=== PATIENT | male | born 1945 | race Caucasian/White ===

== ENCOUNTER 2021-04-10 00:56 | Day surgery (SDC) | payer MEDICARE, SELFPAY ==
[2021-04-01 13:42] VITALS: BMI 36.0
--- NOTE | 2021-04-09 12:46 | PM.HPGS ---
History of Present Illness History of Present Illness Consent: Risks, benefits, and alternatives have been discussed and questions answered. Patient agrees to proceed with procedure. Chief complaint: neoplasm screening Narrative: Rodney Mathur is a 75 year old male here for colon cancer screening. He has had several polyps removed about 5 years ago Review of Systems Review of Systems: All systems reviewed & are unremarkable except as noted in HPI and below PMFSH Past Medical History Medical History Hyperlipidemia Hypertension Surgical History Surgical History H/O heart artery stent S/P CABG x 3 Family History Family History Other Diabetes mellitus Family history of cardiovascular disease Hypertension Social History Social History Smoking packs per day: 1 Smoking cigarettes per day: 20.0 Years smoked: 30 Smoking pack-years: 30.00 Smoking status: Former smoker Smoking end date: 08/08/97 Alcohol intake: current Drinks per week: 5 Alcohol use details: wine Living arrangements: alone Spiritual care concerns: No Meds Home Medications and Allergies Home Medications Medication Instructions Recorded Confirmed Type allopurinol 300 mg PO DAILY 04/01/21 04/01/21 History amlodipine 10 mg PO DAILY 04/01/21 04/10/21 History atorvastatin 40 mg PO DAILY 04/01/21 04/01/21 History clopidogrel 75 mg PO DAILY 04/01/21 04/10/21 History glipizide 5 mg PO DAILY 04/01/21 04/01/21 History losartan 100 mg PO DAILY 04/01/21 04/10/21 History metformin 500 mg PO BIDWMEAL 04/01/21 04/01/21 History metoprolol tartrate 25 mg PO BID 04/01/21 04/10/21 History Allergies Allergy/AdvReac Type Severity Reaction Status Date / Time MEPERIDINE HCL Allergy Severe ANAPHYLACTIC Uncoded 04/10/21 08:46 REACTION Exam Resp: Auscultation: clear to auscultation bilaterally Cardio: Rate: regular rate Rhythm: regular rhythm GI: GI Palp: Yes Soft to palpation and No Tenderness to palpation present (GI) Assessment and Plan Assessment and plan (1) Colon cancer screening: Code(s): Z12.11 - Encounter for screening for malignant neoplasm of colon Status: Acute Assessment and Plan: Colonoscopy with possible biopsy or polypectomy or cautery or injection of substances.
[2021-04-10 08:48] VITALS: BP 140/77; PULSE 69; RESP 18; TEMP 36.2; O2SAT 95; BMI 35.4
[2021-04-10] MEDS: LACTATED RINGERS 1,000 ML 150 ML IV CONT (09:06)
[2021-04-10 09:07] LABS: Glucose Point of Care 156 mg/dl (65-105)
--- NOTE | 2021-04-10 09:17 | WPDANESEPPF ---
Anes - Initial Pre Proc Eval Procedure: Operation Date: 04/10/21 09:30 Proposed Procedures p Screening Colonoscopy - Niles Joy MD Date/Time: 04/10/21 09:17 Surgeon: Niles Joy MD Pre Op Diagnosis: neoplasm screening Patient Data Age: 75 Gender: M Height: 1.8 m Weight: 115.1 kg Last Vital Signs Temp 97.1 F L 04/10/21 08:48 Pulse 69 04/10/21 08:48 Resp 18 04/10/21 08:48 BP 140/77 04/10/21 08:48 Pulse Ox 95 04/10/21 08:48 Allergies Allergy/AdvReac Type Severity Reaction Status Date / Time MEPERIDINE HCL Allergy Severe ANAPHYLACTIC Uncoded 04/10/21 08:46 REACTION Home Medications Medication Instructions Recorded Confirmed Type allopurinol 300 mg PO DAILY 04/01/21 04/01/21 History amlodipine 10 mg PO DAILY 04/01/21 04/10/21 History atorvastatin 40 mg PO DAILY 04/01/21 04/01/21 History clopidogrel 75 mg PO DAILY 04/01/21 04/10/21 History glipizide 5 mg PO DAILY 04/01/21 04/01/21 History losartan 100 mg PO DAILY 04/01/21 04/10/21 History metformin 500 mg PO BIDWMEAL 04/01/21 04/01/21 History metoprolol tartrate 25 mg PO BID 04/01/21 04/10/21 History Laboratory Tests 04/10/21 09:03 POC Capillary Glucose 156 mg/dl H mg/dl (65-105) Patient hx anesthesia problems: none Family hx anesthesia problems: none PMFSH Past Medical History Medical History Hyperlipidemia Hypertension Surgical History Surgical History (Updated 04/10/21 @ 09:17 by Pancho Lowe MD) H/O heart artery stent Family History Family History Other Diabetes mellitus Family history of cardiovascular disease Hypertension Social History Social History Smoking packs per day: 1 Smoking cigarettes per day: 20.0 Years smoked: 30 Smoking pack-years: 30.00 Smoking status: Former smoker Smoking end date: 08/08/97 Alcohol intake: current Drinks per week: 5 Alcohol use details: wine Living arrangements: alone Spiritual care concerns: No Anes - Eval Final PreProcedure Day of Procedure 04/10/21 09:17 Patient weight: obese Heart: regular rate and rhythm Lungs: clear to auscultation Airway: Mallampati scale class III Neurological: alert and oriented Last oral intake: >/= 8 hours ASA classification: III Emergent: no Anesthetic plan: proceed Anesthesia type and monitoring: general GIVS and standard monitoring Informed Consent: The patient's anesthetic plan and its attendant risks and benefits were discussed with the patient/family/POA. Questions were solicited and answers provided to the satisfaction of the patient/family/POA.
[2021-04-10 10:09] VITALS: BP 121/71; PULSE 66; RESP 18; O2SAT 98
[2021-04-10 10:19] VITALS: BP 133/79; PULSE 64; RESP 18; O2SAT 99
[2021-04-10 10:29] VITALS: BP 126/83; PULSE 62; RESP 18; O2SAT 99
== END 2021-04-10 10:42 | disposition home or self-care (01) ==
PROVIDERS: PCP Family Medicine; Visit Provider Internal Medicine Gastroenterology
PROC: 0DJD8ZZ Inspection of Lower Intestinal Tract, Via Natural or Artificial Opening Endoscopic (ICD-10-PCS; CPT 45378; principal; 2021-04-10 09:30)
DX: Z12.11 Encounter for screening for malignant neoplasm of colon (principal); D12.5 Benign neoplasm of sigmoid colon; D12.3 Benign neoplasm of transverse colon; D12.8 Benign neoplasm of rectum; I10 Essential (primary) hypertension; E78.5 Hyperlipidemia, unspecified; F17.200 Nicotine dependence, unspecified, uncomplicated; Z95.5 Presence of coronary angioplasty implant and graft; Z95.1 Presence of aortocoronary bypass graft
CPT/HCPCS: 45385; 45381; 82948; 88305; J2704; J7120

== ENCOUNTER 2022-08-08 10:51 | Emergency (ER) | payer MEDICARE, SELFPAY ==
--- NOTE | ~2022-08-08 | XR_ITS ---
EXAMINATION: XR chest 1V portable DATE: 08/08/2022 13:00 INDICATION: Cough. TECHNIQUE: A single frontal view of the chest was obtained. COMPARISON: Chest 2 views 05/09/2018, CT abdomen and pelvis 03/23/2018 FINDINGS: There are airspace opacities in the lower lung zones. No pleural effusion or pneumothorax. The heart size is normal. Calcified hilar and mediastinal lymph nodes are consistent with old granulo matous disease. There are changes of anterior fusion procedure in cervical spine. IMPRESSION: 1. Airspace opacities in the lower lung zones, consistent with atelectasis versus pneumonia. Reviewed, dictated and finalized at location A. HOUSE FOREMAN IMPRESSION: 1. Airspace opacities in the lower lung zones, consistent with atelectasis vers us pneumonia.
[2022-08-08 11:20] VITALS: BP 135/62; PULSE 75; RESP 20; TEMP 36.2; O2SAT 97
[2022-08-08 12:00] VITALS: O2SAT 97
[2022-08-08 12:20] LABS: Influenza A QL RT-PCR Negative (Negative); Influenza B QL RT-PCR Negative (Negative); RSV RNA, RT-PCR Negative (Negative); SARS-CoV-2 RNA PCR Positive
--- NOTE | 2022-08-08 13:16 | ED.GENADULT ---
HPI - General Adult General Chief complaint: Upper Respiratory Infection Stated complaint: cough, chills, without fever x 4 days Time Seen by Provider: 08/08/22 12:16 History of Present Illness HPI narrative: Patient is a 76-year-old male who presents to the ER with concerns for COVID-19. He reports his roommate is currently positive for COVID. On 08/05/2022 patient began having cough. Then developed into fevers and chills as well as fatigue. He has been immunized against COVID-19. No chest pain or chest pressure. He has not taken a home test. Related Data Home Medications Medication Instructions Recorded Confirmed allopurinol 300 mg tablet 300 mg PO DAILY 04/01/21 04/01/21 amlodipine 10 mg tablet 10 mg PO DAILY 04/01/21 04/10/21 atorvastatin 40 mg tablet 40 mg PO DAILY 04/01/21 04/01/21 clopidogrel 75 mg tablet 75 mg PO DAILY 04/01/21 04/10/21 glipizide 5 mg tablet 5 mg PO DAILY 04/01/21 04/01/21 losartan 100 mg tablet 100 mg PO DAILY 04/01/21 04/10/21 metformin 500 mg tablet,extended 500 mg PO BIDWMEAL 04/01/21 04/01/21 release 24 hr metoprolol tartrate 25 mg tablet 25 mg PO BID 04/01/21 04/10/21 Allergies Allergy/AdvReac Type Severity Reaction Status Date / Time MEPERIDINE HCL Allergy Severe ANAPHYLACTIC Uncoded 08/08/22 12:06 REACTION Review of Systems Constitutional: Constitutional: Reports chills, Reports fatigue and Reports fever(s) ENT: Reports nasal congestion and Reports sore throat Cardiovascular: Cardiovascular: Denies chest pain, Denies rapid heart rate and Denies radiating jaw, neck or arm pain Respiratory: Respiratory: Denies chest congestion, Reports cough and Denies dyspnea Gastrointestinal: Gastrointestinal: Reports no additional gastrointestinal complaints [facility] Past Medical History Medical History (Updated 08/08/22 @ 13:20 by Fermin Alba MD) History of prostate cancer Hyperlipidemia Hypertension Recurrent incisional hernia Type 2 diabetes mellitus Surgical History Surgical History (Updated 04/10/21 @ 09:17 by Pancho Lowe MD) H/O heart artery stent Family History Family History Other Diabetes mellitus Family history of cardiovascular disease Hypertension Social History Social History Smoking packs per day: 1 Smoking cigarettes per day: 20.0 Years smoked: 30 Smoking pack-years: 30.00 Smoking status: Former smoker Smoking end date: 08/08/97 Alcohol intake: current Drinks per week: 5 Alcohol use details: wine Spiritual care concerns: No Exam Narrative: GENERAL: Well-appearing, well-nourished, and in no acute distress. HEAD: Normocephalic, atraumatic. CHEST: Clear to auscultation. No respiratory distress. HEART: Regular rate and rhythm. Normal peripheral pulses. EXTREMITIES: Normal range of motion. No edema. SKIN: Warm, dry, no rash. NEURO: Alert and oriented x3. PSYCH: Normal mood and affect. Course Course Emergency Course: Patient resting comfortably. Imaging showed it is atelectasis versus pneumonia, favor pneumonia as patient is not having productive cough. Will provide albuterol for home and will also start molnupiravir as it does not interact with Plavix that he takes. He does have several comorbidities that are of concern including his diabetes, his age and his hypertension. Patient considered a suitable candidate for outpatient treatment. Vital Signs Vital signs: Vital Signs Temperature 97.1 F L 08/08/22 11:20 Pulse Rate 75 08/08/22 11:20 Respiratory Rate 20 08/08/22 11:20 Blood Pressure 135/62 08/08/22 11:20 Pulse Oximetry 97 08/08/22 11:20 Oxygen Delivery Room Air 08/08/22 11:20 Temperature 97.1 F L 08/08/22 11:20 Pulse Rate 75 08/08/22 11:20 Respiratory Rate 20 08/08/22 11:20 Blood Pressure 135/62 08/08/22 11:20 Pulse Oximetry 97 08/08/22 12:00 Oxygen Deliv
== END 2022-08-08 13:35 | disposition home or self-care (01) ==
PROVIDERS: Nurse Practitioner Family; Emergency Provider Emergency Medicine; PCP Family Medicine
DX: U07.1 COVID-19 (principal); E78.5 Hyperlipidemia, unspecified; E11.9 Type 2 diabetes mellitus without complications; I10 Essential (primary) hypertension; Z85.46 Personal history of malignant neoplasm of prostate; Z95.5 Presence of coronary angioplasty implant and graft; Z79.84 Long term (current) use of oral hypoglycemic drugs; Z87.891 Personal history of nicotine dependence; R91.8 Other nonspecific abnormal finding of lung field
CPT/HCPCS: 71045; 87637; 99283

== ENCOUNTER 2024-09-21 00:12 | Day surgery (SDC) | payer MEDICARE, SELFPAY ==
[2024-09-04 14:41] VITALS: BMI 32.5
--- NOTE | 2024-09-18 10:09 | PC.NURSE ---
Spoke with _patient_ regarding medication Plavix. Patient verbalizes understanding that the last dose is to be taken on 09/16/2024 and the Endoscopist will instruct them when to restart after the procedure.
--- OUTSIDE RECORDS SUMMARY | 2024-09-21 00:21 | XMS_ITS ---
Author Organization [facility] [address] 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 Encourage annual flu vaccine. Wear sunscreen/protective clothing when outdoors. 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 BP well controlled. LDL=39 Denies any chest pain, sob or fatigue. Reports 2 episodes of dizziness last month, occurred while carrying in groceries. Ate small snack for concerns of hypoglycemia and did not note improvement. BP during dizzy episodes variable, once elevated and once lower. Admits to not drinking enough water. Episodes resolved after sitting quietly for about 10 minutes. Encouraged close continued monitoring and increase PO water intake. EKG completed today showing bradycardia HR 50. Discussed with cardiology, will decrease metoprolol from 25 mg bid to 12.5 mg bid. Scheduled for follow up with cardiology next month. Assessment & Plan (07/19/2023 9:20 AM PARK AIDE): Continue secondary prevention with statin and clopidogrel. Denies any chest pain/pressure or reduced exercise tolerance. Assessment & Plan (01/14/2023 8:57 AM CDT): Managed by cardiology, continue secondary prevention. 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 No blood in stools. Assessment & Plan (09/22/2021 9:11 AM PARK AIDE): Holding clopidogrel since 09/19/21. Labs ordered for upcoming procedure with Dr. Dumont on 09/25/21. Obesity due to excess calories with serious ildefonso rbidity 06/04/2021 Assessment & Plan (07/19/2023 9:19 AM PARK AIDE): Patient has maintained weight loss, encouraged continued exercise and diet modifications. Assessment & Plan (07/16/2022 9:07 AM PARK AIDE): Congratulated on recent weight loss and increased exercise, will continue to monitor. Assessment & Plan (09/22/2021 9:15 AM PARK AIDE): Discussed healthy diet and importance of regular physical activity. Hopeful for increased physical activity following procedure on Tuesday. Assessment & Plan (06/04/2021 2:02 PM CDT): Reviewed need for weight loss to improve back pain. Recommended increased activity and monitor of portion size and caloric intake. 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 Dumont. Discussed need for weight loss and core strengthening exercises. Given short term muscle relaxer today, reviewed medication scheduling and side effects. Assessment & Plan (09/22/2021 9:10 AM PARK AIDE): Scheduled L4 Vertebral Augmentation with Dr. Dumont on 09/25/21. Has held plavix since Tuesday09/19/21. Per chart review, ordered labs today for procedure. Assessment & Plan (06/04/2021 2:06 PM CDT): Will get imaging. No s/s of cauda equina. No b/b dysfunction. Will trial short course of steroid and ms relaxer. Plan for PT following imaging, patient agreeable. Reviewed gently stretching exercises. Patient to stay active, avoid strain or heavy lifting. Encouraged weight loss. Reviewed red flags and follow up. 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 Monofilament exam completed, no loss of protective senses normal exam today. Blood pressure is well controlled. LDL is at goal. No change in current medication regimen. Assessment & Plan (07/19/2023 9:17 AM PARK AIDE): Stable. Continue checking feet daily. Current on eye exam. No change in current medication regimen. Reviewed labs today with patient Lab Results Component Value Date HGBA1C 6.3 (H) 07/13/2023 HGBA1C 6.4 (H) 01/14/2023 HGBA1C 6.9 (H) 07/16/2022 Assessment & Plan (01/14/2023 8:42 AM CDT): Encouraged patient to check blood glucose once daily and as needed if not feeling well. Will hold glipizide for now and check labs. Patient weight is down 36 lbs, congratulated on weight loss efforts and healthy lifestyle changes. Monofilament exam today with loss of protective senses, encouraged patient to check feet regularly. Current on eye exam. Continue metformin 500 mg twice daily. Assessment & Plan (07/16/2022 8:45 AM PARK AIDE): Patient taking metformin 500 mg twice daily and taking glipizide 5 mg once daily. Will check labs today and make changes as needed. Patient is down 16 lbs, congratulated on weight loss. Assessment & Plan (01/14/2022 8:35 AM CDT): Continues metformin and glipizide. Is current on eye exam. Discussed need to monitor carb/sugar intake. Encouraged to check BG at home. Will repeat a1c in 3 months, aware of goal <7%, encouraged to monitor bs at home. Lab Results Component Value Date HGBA1C 6.7 01/14/2022 HGBA1C 7.4 (H) 09/21/2021 HGBA1C 6.8 (H) 03/23/2021 Assessment & Plan (09/22/2021 9:04 AM PARK AIDE): Lab Results Component Value Date HGBA1C 7.4 (H) 09/21/2021 HGBA1C 6.8 (H) 03/23/2021 HGBA1C 6.9 (H) 09/12/2020 Continues metformin and glipizide. Is current on eye exam. Discussed need to monitor carb/sugar intake. Foot exam completed today. Will repeat a1c in 3 months, aware of goal <7%, encouraged to monitor bs at home. Hyperlipidemia associated with type 2 diabetes amelie husain 03/10/2020 Assessment & Plan (01/24/2024 10:36 AM CDT): Atorvastatin 40 mg daily Assessment & Plan (07/19/2023 9:18 AM PARK AIDE): LDL at goal, patient is compliant with atorvastatin 40 mg daily denies any medication side effects. Assessment & Plan (07/16/2022 9:12 AM PARK AIDE): Patient is taking atorvastatin 40 mg daily, denies any medication side effects.2/14/22 TC 101 TRG 233 HDL 31 LDL 23 Will repeat labs today make any additional changes as needed. Reviewed diet and exercise recommendations. Assessment & Plan (09/22/2021 8:44 AM PARK AIDE): 09/21/21 TC 101 TRG 233 HDL 31 LDL 23 Continues atorvastatin 40 mg daily. Chest pain due to myocardial ischemia 05/03/2019 Overview (05/03/2019): Added automatically from request for surgery [id number] Hypertension associated with diabetes Assessment & Plan (01/24/2024 10:42 AM CDT): BP well controlled. Doing well on losartan 100 mg daily. Assessment & Plan (07/19/2023 9:16 AM PARK AIDE): Blood pressure is well controlled on current medication regimen, continue losartan 100 mg daily, metoprolol 25 mg daily and amlodipine 10 mg daily. Assessment & Plan (01/14/2023 8:44 AM CDT): Stable; continue losartan 100 mg daily. Assessment & Plan (07/16/2022 8:50 AM PARK AIDE): Blood pressure well controlled on current medications. No changes in medications today. Patient has increased activity and is working on weight loss. Following with cardiology. Assessment & Plan (01/14/2022 8:36 AM CDT): BP well controlled. No changes in current regimen. Patient follows with cardiology. Assessment & Plan (09/22/2021 8:45 AM PARK AIDE): BP well controlled. No changes in current regimen. Assessment & Plan (06/04/2021 2:03 PM CDT): BP elevated today, likely secondary to back pain. Patient with ability to monitor BP at home. Reviewed BP goals and patient to call clinic if BP elevated. Reviewed red flags. Gout NSTEMI (non-ST elevated myocardial infarction) ( CMS/HCC) Acute coronary syndrome (CMS/HCC) LBBB (left bundle branch block) Current Oncology Plans No current plan information found. Past Plans No past plan information found. Radiation Treatments * No radiation treatments are documented for this patient in [facility]. Treatments may have been administered in another system. Lifetime Dose Tracking * Chemical Lifetime Dose Automatic Entry Manual Entr y Fluoro Time 6 minutes 6 minutes 0 minutes Air kerma at the reference point (Ka,r) 3,118.56 mGy 2 72.56 mGy 2,846 mGy Resolved Problems Problem Noted Date Diagnosed Date Resolved Date Chest pain 05/03/2019 01/24/2024 Hyperglycemia 05/03/2019 01/24/2024 Neck pain 01/24/2024
--- OUTSIDE RECORDS SUMMARY | 2024-09-21 00:21 | XMS_ITS | Referral Summary ---
Author [place] [facility] [place] [facility] Address [address] [place]to [place] [address] Care Team Providers Care Falafel Cart Cook Name Role Phone Saturnino Zepeda MD Primary Care Provider [phone] Rey Solis CAREER COORDINATOR Unavailable [phone] Krish Delacruz CAREER COORDINATOR Unavailable Annemarie Sinclair DNP Unavailable [phone] Encounters Date Type Department Care Team Description 09/17/2024 Telephone [facility] Cardiology [address] [place] [address] Ciaran Rodriguez MD from Last 3 Months Allergies Active Allergy Reactions Criticality Noted Date Comments Meperidine Anxiety Low 05/03/2019 Medications blood-glucose meter kitIndications :New onset type 2 diabetes mellitus (CMS/HCC) ([facility]) 1 each daily 1 each 09/17/19 20 Active clobetasoL (TEMOVATE) 0.05 % external solution 05/08/20 20 Active albuterol HFA (PROVENTIL HFA,VENTOLIN HFA,PROAIR HFA) 90 mcg/actuation inhalerIndicat ions:Type 2 diabetes mellitus with diabetic polyneuropathy , without long-term current use of insulin ([facility]) 2 puffs 08/08/19 23 Active metFORMIN XR (GLUCOPHAGE XR) 500 mg 24 hr tabletIndicati ons:Type 2 diabetes mellitus without complication, without long-term current use of insulin (CMS/HCC) ([facility]) TAKE 1 TABLET(500 MG) BY MOUTH TWICE DAILY WITH MEALS 180 tablet 3 10/07/19 24 Active amLODIPine (NORVASC) 10 mg tabletIndicati ons:Hypertensi on associated with diabetes (HCC) TAKE 1 TABLET(10 MG) BY MOUTH DAILY 90 tablet 3 01/12/20 24 Active atorvastatin (LIPITOR) 40 mg tabletIndicati ons:Hyperlipid [place] associated with type 2 diabetes mellitus (HCC) Take 1 tablet (40 mg total) by mouth nightly 90 tablet 3 01/24/20 24 Active losartan (COZAAR) 100 mg tabletIndicati ons:Hypertensi on associated with diabetes (HCC) Take 1 tablet (100 mg total) by mouth daily 30 tablet 11 01/24/20 24 Active glipiZIDE (GLUCOTROL) 5 mg tabletIndicati ons:type 2 diabetes mellitus Take 1 tablet (5 mg total) by mouth 2 (two) times a day before breakfast and lunch Active clopidogreL (PLAVIX) 75 mg tablet TAKE 1 TABLET(75 MG) BY MOUTH DAILY 90 tablet 07/09/20 24 Active allopurinoL (ZYLOPRIM) 300 mg tabletIndicati ons:Idiopathic chronic gout of multiple sites with tophus TAKE 1 TABLET(300 MG) BY MOUTH DAILY 90 tablet 3 09/03/19 25 Active allopurinoL (ZYLOPRIM) 300 mg tabletIndicati ons:Idiopathic chronic gout of multiple sites with tophus TAKE 1 TABLET(300 MG) BY MOUTH DAILY 90 tablet 3 09/06/19 24 025 Discontinued Active Problems Problem Noted Date Diagnosed Date Encounter for annual wellness exam in Medicare p atient 01/24/2024 Assessment & Plan (01/24/2024 10:36 AM CDT): Preventive exam; reviewed recommended preventive screenings and vaccinations. Encourage annual flu vaccine. Wear sunscreen/protective clothing when outdoors. COVID-19 07/19/2023 Coronary artery disease invo [place]ving [place] coronary artery of [place] heart without angina pectoris 01/14/2023 Assessment & [...] month. Assessment & Plan (07/19/2023 9:20 AM ROUTE DELIVERER): Continue secondary prevention with statin and clopidogrel. Denies any chest pain/pressure or reduced exercise tolerance. Assessment & Plan (01/14/2023 8:57 AM CDT): Managed by cardiology, continue secondary prevention. terminal manager (current) use of anticoagulants 2021 Assessment & Plan (01/24/2024 9:51 AM CDT): Continues clopidogrel 75 mg daily, no problems with bleeding or bruising. No blood in stools. Assessment & Plan (09/22/2021 9:11 AM ROUTE DELIVERER): Holding clopidogrel since 09/19/21. Labs ordered for upcoming procedure with Dr. Dumont on 09/25/21. Obesity due to excess calories with serious ildefonso rbidity 06/04/2021 Assessment & Plan (07/19/2023 9:19 AM ROUTE DELIVERER): Patient has maintained weight loss, encouraged continued exercise and diet modifications. Assessment & Plan (07/16/2022 9:07 AM ROUTE DELIVERER): Congratulated on recent weight loss and increased exercise, will continue to monitor. Assessment & Plan (09/22/2021 9:15 AM ROUTE DELIVERER): Discussed healthy diet and importance of regular [...] effects. Assessment & Plan (09/22/2021 9:10 AM ROUTE DELIVERER): Scheduled L4 Vertebral Augmentation with Dr. Dumont [...] regimen. Assessment & Plan (07/19/2023 9:17 AM ROUTE DELIVERER): Stable. Continue checking feet daily. Current on [...] daily. Assessment & Plan (07/16/2022 8:45 AM ROUTE DELIVERER): Patient taking metformin 500 mg twice daily [...] 03/23/2021 Assessment & Plan (09/22/2021 9:04 AM ROUTE DELIVERER): Lab Results Component Value Date HGBA1C 7.4 [...] daily Assessment & Plan (07/19/2023 9:18 AM ROUTE DELIVERER): LDL at goal, patient is compliant with atorvastatin 40 mg daily denies any medication side effects. Assessment & Plan (07/16/2022 9:12 AM ROUTE DELIVERER): Patient is taking atorvastatin 40 mg daily, denies any medication side effects.09/21/21 TC 101 TRG 233 HDL 31 LDL 23 Will repeat labs today make any additional changes as needed. Reviewed diet and exercise recommendations. Assessment & Plan (09/22/2021 8:44 AM ROUTE DELIVERER): 09/21/21 TC 101 TRG 233 HDL 31 LDL 23 Continues atorvastatin 40 mg daily. Chest pain due to myocardial ischemia 05/03/2019 Overview (05/03/2019): Added automatically from request for surgery [id number] Hypertension associated with diabetes Assessment & Plan (01/24/2024 10:42 AM CDT): BP well controlled. Doing well on losartan 100 mg daily. Assessment & Plan (07/19/2023 9:16 AM ROUTE DELIVERER): Blood pressure is well controlled on current medication regimen, continue losartan 100 mg daily, metoprolol 25 mg daily and amlodipine 10 mg daily. Assessment & Plan (01/14/2023 8:44 AM CDT): Stable; continue losartan 100 mg daily. Assessment & Plan (07/16/2022 8:50 AM ROUTE DELIVERER): Blood pressure well controlled on current medications. No changes in medications today. Patient has increased activity and is working on weight loss. Following with cardiology. Assessment & Plan (01/14/2022 8:36 AM CDT): BP well controlled. No changes in current regimen. Patient follows with cardiology. Assessment & Plan (09/22/2021 8:45 AM ROUTE DELIVERER): BP well controlled. No changes in current regimen. Assessment & Plan (06/04/2021 2:03 PM CDT): BP elevated today, likely secondary to back pain. Patient with ability to monitor BP at home. Reviewed BP goals and patient to call clinic if BP elevated. Reviewed red flags. Gout NSTEMI (non-ST elevated myocardial infarction) ( [facility]/HCC) Acute coronary syndrome ([facility]) LBBB (left bundle branch block) Resolved Problems Problem Noted Date Diagnosed Date Resolved Date Chest pain 05/03/2019 01/24/2024 Hyperglycemia 05/03/2019 01/24/2024 Neck pain 01/24/2024 Immunizations Name Administration Dates Next Due Influenza, Quadrivalent, Hig h Dose, Preservative Free, Intrr 06/01/2022,05/11/2021,06/10/2020 Influenza, Split 08/08/2017 Influenza, Trivalent, High D ose, Split, Preservative Free, Intramuscular 05/29/2019 Influenza, Trivalent, IM (MDV) 08/08/2017 Influenza, Unspecified 06/07/2023,2021,05/11/2021,05/13 Pfizer SARS-CoV-2 Monovalent Vaccination (12+ Yrs) PURPLE 05/11/2021,10/26/2020,10/05/2020 Pneumococcal Conjugate PCV 13 12/21/2019 Pneumococcal Conjugate, Unspecified 05/08/2018(D eferred: Patient Refused) Pneumococcal Polysaccharide PPV23 03/17/2021 Social History Tobacco Use Types Packs/Day Years Used Date Smoking Tobacco: Former Smokeless Tobacco: Never Tobacco Cessation:Counseling Given: Not Answered Alcohol Use Standard Drinks/Week Comments Yes 0 (1 standard drink = 0.6 oz pur e alcohol) occ. AUDIT-C Answer Date Recorded Q1: How often do you have a drink containing alc ohol? 2-4 times a month 08/25/2022 Q2: How many drinks containi ng alcohol do you have on a typical day when you are drinking? 3 or 4 08/25/2022 Q3: How often do you have si x or more drinks on one occasion? Less than monthly 08/25/2022 PHQ-2 Answer Date Recorded PHQ-2 Total Score (If total score is 3 or more points, staff should administer the PHQ-9) 0 01/24/2024 Personal Safety Answer Date Recorded Getting School Help Needed Not on file 07/19 Sex and Gender Information Value Date Recorded Sex Assigned at Not on file Legal Sex Male 9:45 AM ROUTE DELIVERER Gender Identity Not on file Sexual Orientation Not on file Last Filed Vital Signs Vital Sign Reading Time Taken Comments Blood Pressure 132/61 03/28/2024 1:31 PM CDT Pulse 59 02/15/2024 8:21 AM CDT Temperature 36.4 C (97.5 F) 01/24/2024 9:06 AM CDT Respiratory Rate 16 01/24/2024 9:06 AM CDT Oxygen Saturation 97% 02/15/2024 8:21 AM CDT Inhaled Oxygen Concentration - - Weight 102.1 kg (225 lb) 02/15/2024 8:21 AM CDT Height 177.8 cm (5' 10 ) 02/15/2024 8:21 AM CDT Body Mass Index 32.28 02/15/2024 8:21 AM CDT Plan of Treatment Not on file Medical Devices Implanted Type Area Fax Machine Repairer Device Identifier Shelf Expiration Date Model / Serial / Lot Daig Anisha [id number] Device Closure Angio-Seal Vip Bondek-Plus Polyglyd L70 Cm Od6 Fr Odsec.035 In Vascular - [id number] Implanted:Qty: 1 on 05/04/2019 by Ciaran Rodriguez MD at [facility] Collagen Daig Anisha/[employer] [id number] / / Daig Anisha/[employer] [id number] Angio-Seal Vip Bondek-Plus 8fr .038in 70cm Hemostatic Latex Free - [id number] Implanted:Qty: 1 on 05/04/2019 by Ciaran Rodriguez MD at [facility] Collagen Daig Anisha/[employer] [id number] / / [employer] Anisha [id number] Synergy 3.5mm 16mm 144cm Radiopaque 1 Access Port Inflation Lumen - [id number] Implanted:Qty: 1 on 05/04/2019 by Ciaran Rodriguez MD at [facility] Stent [employer] Anisha 11/29/2020 [id number] / / [employer] Anisha [id number] Synergy 3.5mm 20mm 144cm Radiopaque 1 Access Port Inflation Lumen - [id number] Implanted:Qty: 1 on 05/04/2019 by Ciaran Rodriguez MD at [facility] FIMBex [id number] 0 / / [employer] [id number] Vertaplex Hv Autoplex Without Needle Delivery System Kit Bone - [id number] Implanted:Qty: 1 on 09/25/2021 at [facility] 05/07/2022 [id number] / / [id number] Procedures Procedure Name Priority Date/Time Associated Diagnosis Comments DIABETIC EYE EXAM Routine 03/07/2024 9:0 2 AM CDT EGFR Routine 01/19/2024 8:07 AM CDT Hypertension associated with diabetes (HCC) Type 2 diabetes mellitus with diabetic polyneuropathy, without long-term current use of insulin (CMS/HCC) (HCC) Hyperlipidemia associated with type 2 diabetes mellitus (HCC) HEMOGLOBIN A1C Routine 01/19/2024 8:07 AM CDT Hypertension associated with diabetes (HCC) Type 2 diabetes mellitus with diabetic polyneuropathy, without long-term current use of insulin (CMS/HCC) (HCC) Hyperlipidemia associated with type 2 diabetes mellitus (HCC) LIPID PANEL Routine 01/19/2024 8:07 AM CDT Hypertension associated with diabetes (HCC) Type 2 diabetes mellitus with diabetic polyneuropathy, without long-term current use of insulin (CMS/HCC) (HCC) Hyperlipidemia associated with type 2 diabetes mellitus (HCC) ALBUMIN CREATININE RATIO, URINE Routine 01/19/2024 8:07 AM CDT Hypertension associated with diabetes (HCC) Type 2 diabetes mellitus with diabetic polyneuropathy, without long-term current use of insulin (CMS/HCC) (HCC) Hyperlipidemia associated with type 2 diabetes mellitus (HCC) US ABDOMINAL AORTIC ANEURYSM SCREENING Schedule Routine, Read Routine (OP Routine) 08/23/2022 11:41 AM ROUTE DELIVERER Encounter for abdominal aortic aneurysm (AAA) screening COLONOSCOPY Routine 04/10/2021 from Last 3 Months or Most Recently Relevant to Health Maintenance Results * Diabetic Eye Exam (03/07/2024 9:02 AM CDT) us Historical Provider HEALTH MAINTENANCE Final Result * eGFR (01/19/2024 8:07 AM CDT) eGFR 66 >=60 mL/min/1. 73 m2 Comment: Interpretive Data Reference Interval Normal >/= 90 mL/min/1.73m2 Mildly decreased* 60 - 89 mL/min/1.73m2 Mildly to moderately decreased 45 - 59 mL/min/1.73m2 Moderately to severely decreased 30 - 44 mL/min/1.73m2 Severely decreased 15 - 29 mL/min/1.73m2 Kidney Failure < 15 mL/min/1.73m2 *Relative to young adult level Estimated glomerular filtration rate is determined by the 2020 CKD-EPI equation recommended by the National Kidney Foundation (A Unifying Approach to GFR Estimation: Recommendations of the NKF-ASK Task Force on Reassessing the Inclusion of Race in Diagnosing Kidney Disease, JASN 2020). The CKD-EPI equation should not be used for patients with unstable renal function and has not been validated in children and those over 70. Current interpretive data was last reviewed 2021. Testing performed by: [address] [address] Blood 01/19/2024 8:07 AM CDT 01/19/2024 12:41 PM CDT Bernarda Storm NP LAB BLOOD ORDERABLES Final Result VERONICAALFONSO GHOSH ([place]) [address] [facility] [place] [address] * (ABNORMAL) Albumin Creatinine Ratio, Urine (01/19/2024 8:07 AM CDT) Albumin Ur 140.5 mg/L Comment: Interpretive Data No reference range established. Current interpretive data was last revised 2018. Testing performed by: [address] [address] Creatinine Ur 119.1 mg/dL PIYUSH GHOS[facility] ([place]) Comment: Interpretive Data No reference range established. Current interpretive data was last revised 2018. Testing performed by: [address] [place]., [address] Albumin Creatinine Ratio, Ur 118(H) 1 - 29 mg/g PIYUSH GHOS[facility] ([place]) Comment:Testing performed by : [address] [address] Urine 01/19/2024 8:07 AM CDT 01/19/2024 12:11 PM CDT Bernarda Storm [facility] [employer] LAB URINE ORDERABLES Final Result PIYUSH GHOS[facility] ([place]) [address] [facility] [place] [address] * (ABNORMAL) Hemoglobin A1c (01/19/2024 8:07 AM CDT) Hgb A1C 6.0(H) 4.0 - 5.6 % Comment:Testing performed by : [facility], [address] [place] [address]., [address] Estimated Average Glucose 126 mg/dL PIYUSH GHOSH ([place]) Comment: The ADA recommends reporting an estimated Average Glucose (eAG) with all Hemoglobin A1c results using the equation derived from a study of 507 normal and diabetic adults. Minority populations were underrepresented and children were not included. (Diabetes Care 31:6089-6405, 2008). The eAG is not equivalent to a fasting glucose. Testing performed by: [facility], [address] [place] [address]., [address] Blood 01/19/2024 8:07 AM CDT 01/19/2024 12:11 PM CDT Bernarda Storm [employer] LAB BLOOD ORDERABLES Final Result Performing Organization Address City/[facility]/ZIP Co de Phone Number PIYUSH GHOSH ([place]) [address] [facility] [place] [address] * (ABNORMAL) Lipid panel (01/19/2024 8:07 AM CDT) Cholesterol 113 30 - 199 mg/dL Comment: Interpretive Data Ages < or = 19 years Acceptable: <170 mg/dL Borderline high: 170-199 mg/dL High: >or= 200 mg/dL Ages > or = 20 years Desirable: <200 mg/dL Borderline high: 200-239 mg/dL High: >or= 240 mg/dL Literature References: 1. Expert Panel on Integrated Guidelines for Cardiovascular Health and Risk Reduction in Children and Adolescents. Pediatrics 2011;128:S213 2. NCEP Expert Panel. Circulation 2004;110:227 Current Interpretive Data was last revised on 2018. Testing performed by: [facility], [address] [place] [address]., [address] Triglycerides 176(H) <=149 mg/dL [facility] ([place]) Comment: Interpretive Data Ages < or = 9 years Acceptable: <75 mg/dL Borderline high: 75-99 mg/dL High: >or= 100 mg/dL Ages 10 to 20 years Acceptable: <90 mg/dL Borderline high: 90-129 mg/dL High: >or= 130 mg/dL Ages > or = 20 years Desirable: <150 mg/dL Borderline high: 150-199 mg/dL High: 200-499 mg/dL Very high: >or= 499 mg/dL Literature References: 1. Expert Panel on Integrated Guidelines for Cardiovascular Health and Risk Reduction in Children and Adolescents. Pediatrics 2011;128:S213 2. NCEP Expert Panel. Circulation 2004;110:227 Current Interpretive Data was last revised on 2018. Testing performed by: [facility], [address] [place] [address]., [address] HDL 39(L) >=40 mg/dL [facility] ([place]) Comment: Interpretive Data Ages < or = 19 years Acceptable: >45 mg/dL Borderline low: 40-45 mg/dL Low: <40 mg/dL Ages > or = 20 years Desirable: >or= 60 mg/dL Low: <40 mg/dL Literature References: 1. Expert Panel on Integrated Guidelines for Cardiovascular Health and Risk Reduction in Children and Adolescents. Pediatrics 2011;128:S213 2. NCEP Expert Panel. Circulation 2004;110:227 Current Interpretive Data was last revised on 2018. Testing performed by: [facility], [address] [place] [address]., [address] LDL, calculated 39 <=129 mg/dL [facility] ([place]) Comment: Interpretive Data Ages < or = 19 years Acceptable: <110 mg/dL Borderline high: 110-129 mg/dL High: >or= 130 mg/dL Ages > or = 20 years Optimal: <100 mg/dL Near optimal: 100-129 mg/dL Borderline high: 130-159 mg/dL High: >160 mg/dL Literature References: 1. Expert Panel on Integrated Guidelines for Cardiovascular Health and Risk Reduction in Children and Adolescents. Pediatrics 2011;128:S213 2. NCEP Expert Panel. Circulation 2004;110:227 Current Interpretive Data was last revised on 2018. Testing performed by: [address] [address] Non-HDL Cholesterol 74 mg/dL PIYUSH GHOS[facility] ([place]) Comment: Interpretive Data Ages < or = 19 years Acceptable: <120 mg/dL Borderline high: 120-144 mg/dL High: >145 mg/dL Ages > or = 20 years When triglycerides are >200 mg/dL, Non-HDL cholesterol is a secondary target of therapy with treatment goals that are 30 mg/dL greater than the LDL cholesterol target. Literature References: 1. Expert Panel on Integrated Guidelines for Cardiovascular Health and Risk Reduction in Children and Adolescents. Pediatrics 2011;128:S213 2. NCEP Expert Panel. Circulation 2004;110:227 Current Interpretive Data was last revised on 2018. Testing performed by: [facility], [address] [place] [address]., [address] Chol/HDL ratio 3 VENESSA GHOSH ([place]) Comment:Testing performed by : [address] [address] Blood 01/19/2024 8:07 AM CDT 01/19/2024 12:11 PM CDT Bernarda Storm NP LAB BLOOD ORDERABLES Final Result PIYUSH GHOS[facility] ([place]) [address] [facility] [place] [address] * US Abdominal Aortic Aneurysm Screening (08/23/2022 11:41 AM ROUTE DELIVERER) Anatomical Region Laterality Modality Abdomen Ultrasound 08/23/2022 12:5 3 PM ROUTE DELIVERER Narrative 08/23/2022 12:54 PM ROUTE DELIVERER EXAM DESCRIPTION: US ABDOMINAL AORTIC ANEURYSM SCREENING REASON FOR STUDY: AAA screening, smoking history (Age => 50y), 30 pack year history, quit smoking 24 years ago TECHNIQUE: Grayscale images acquired of the aorta and stored on PACS. Selected color Doppler and spectral images recorded. COMPARISON: None. FINDINGS: AORTIC CALIBER MAXIMAL PROXIMAL: 2.8 x 2.8 cm. MID: 2.2 x 2.1 cm. DISTAL: 1.7 x 1.8 cm. ILIAC DIAMETER RIGHT: 1.2 cm. LEFT: 1.2 cm. OTHER: Incidental demonstration of cholelithiasis. There is a hepatic steatosis. IMPRESSION: No abdominal aortic aneurysm. REFERENCE: Please see below follow up recommendations for abdominal aortic aneurysm surveillance per Society for Vascular Surgery Guidelines: < 2.6 cm No follow up necessary 2.62.9 cm Recommended ultrasound follow up every 5 years 3.0-3.4 cm Recommended ultrasound follow up every 3 years 3.5-3.9 cm Recommended ultrasound follow up every 12 months 4.0-4.9 cm Recommended ultrasound follow up every 12 months, vascular surgery consult 5.0-5.4 cm Recommended ultrasound follow up every 6 months, vascular surgery consult >= 5.5 cm Referral to vascular surgeon Based upon Society for Vascular Surgery Guidelines: J Vasc Surgery 2008 50: s2s49; updated Aug 2017 J Vasc Surgery 67:277 THIS IS AN ELECTRONICALLY VERIFIED FINAL REPORT 08/23/2022 12:54 PM - Electronically signed by Pool Lucia M.D. CH: Report ID: [id number] Reading Location: [id number] Procedure Note Pool Lucia Jr., MD - 08/23/2022 EXAM DESCRIPTION: US ABDOMINAL AORTIC ANEURYSM SCREENING REASON FOR STUDY: AAA screening, smoking history (Age => 51y), 30 packyear history, quit smoking 24 years ago TECHNIQUE: Grayscale images acquired of the aorta and stored on PACS.Selected color Doppler and spectral images recorded. COMPARISON: None. FINDINGS: AORTIC CALIBER MAXIMAL PROXIMAL: 2.8 x 2.8 cm. MID: 2.2 x 2.1 cm. DISTAL: 1.7 x 1.8 cm. ILIAC DIAMETER RIGHT: 1.2 cm. LEFT: 1.2 cm. OTHER: Incidental demonstration of cholelithiasis. There is a hepatic steatosis. IMPRESSION: No abdominal aortic aneurysm. REFERENCE: Please see below follow up recommendations for abdominal aortic aneurysm surveillance per Society for Vascular Surgery Guidelines: < 2.6 cm No follow up necessary 2.62.9 cm Recommended ultrasound follow up every 5 years 3.0-3.4 cm Recommended ultrasound follow up every 3 years 3.5-3.9 cm Recommended ultrasound follow up every 12 months 4.0-4.9 cm Recommended ultrasound follow up every 12 months, vascularsurgery consult 5.0-5.4 cm Recommended ultrasound follow up every 6 months, vascularsurgery consult >= 5.5 cm Referral to vascular surgeon Based upon Society for Vascular Surgery Guidelines: J Vasc Surgery 2009Oct 50: s2s49; updated Aug 2017 J Vasc Surgery 67:277 THIS IS AN ELECTRONICALLY VERIFIED FINAL REPORT 08/23/2022 12:54 PM - Electronically signed by Pool Lucia M.D. CH: YASMINE Report ID: [id number] Reading Location: [id number] Bernarda Storm NP IMG US PROCEDURES Final Res ult * Colonoscopy (04/10/2021) Anatomical Region Laterality Modality Other Historical Provider MD ENDOSCOPY PROCEDURES Judith l Result from Last 3 Months or Most Recently Relevant to Health Maintenance Insurance MEDICARE [employer] MEDICARE COMMERCIAL [employer]IC [employer] MEDICARE [employer] Advance Directives For more information, please contact: [phone] Documents on File Type Date Recorded Patient Line Installer Repairer Expl anation ADVANCE DIRECTIVE 09/18/2019 10:41 AM TRISTIN SANTA WILL ADVANCE DIRECTIVE 09/03/2019 Living Matthew l * Full Code (Latest Code Status on File) Date Activated Date Inactivated Comments 09/25/2021 1:56 PM 09/25/2021 7:17 PM * Full Code Date Activated Date Inactivated Comments 05/03/2019 6:48 AM 05/06/2019 7:18 PM Care Teams Falafel Cart Cook Relationship Specialty Start Date End Date Saturnino Zepeda MD [address] [place] [address] PCP - General Family Medicine 05/03/19 Rey Solis, CAREER COORDINATOR [address] [facility] [address] [place] [address] [facility] Outpatient Skin Installer 05/07/19 Krish Delacruz, CAREER COORDINATOR [address] [facility] [address] [place] [address] [facility] Outpatient Skin Installer 05/07/19 Annemarie Sinclair, [place] [address] [facility] [address] [place] [address] Nurse Practitioner Internal Medicine 05/07/19
--- OUTSIDE RECORDS SUMMARY | 2024-09-21 00:21 | XMS_ITS | Clinical Summary ---
Author Organization [facility] Address [address] [place] [address] Care Team Providers Care It Security Administrator Name Role Phone Saturnino Zepeda MD Primary Care Provider [phone] Rey Solis OFFICE RN Unavailable Krish Delacruz OFFICE RN Unavailable Annemarie Sinclair DNP Unavailable [phone] Allergies Active Allergy Reactions Criticality Noted Date Comments Meperidine Anxiety Low 05/03/2019 Medications blood-glucose meter kitIndications :New onset type 2 diabetes mellitus (CMS/HCC) ([facility]) 1 each daily 1 each 09/17/19 20 Active clobetasoL (TEMOVATE) 0.05 % external solution 05/08/20 20 Active albuterol HFA (PROVENTIL HFA,VENTOLIN HFA,PROAIR HFA) 90 mcg/actuation inhalerIndicat ions:Type 2 diabetes mellitus with diabetic polyneuropathy , without long-term current use of insulin ([facility]) 2 puffs 08/08/19 23 Active metFORMIN XR (GLUCOPHAGE XR) 500 mg 24 hr tabletIndicati ons:Type 2 diabetes mellitus without complication, without long-term current use of insulin ([facility]/HCC) ([facility]) TAKE 1 TABLET(500 MG) BY MOUTH TWICE DAILY WITH MEALS 180 tablet 3 10/07/19 24 Active amLODIPine (NORVASC) 10 mg tabletIndicati ons:Hypertensi on associated with diabetes ([facility]) TAKE 1 TABLET(10 MG) BY MOUTH DAILY [...] COVID-19 07/19/2023 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 Assessment & Plan (07/19/2023 9:20 AM MUFFLE OPERATOR): Continue secondary prevention with statin and clopidogrel. Denies any chest pain/pressure or reduced exercise tolerance. Assessment & Plan (01/14/2023 8:57 AM CDT): Managed by cardiology, continue secondary prevention. [facility] (current) use of anticoagulants 2021 Assessment & Plan (01/24/2024 9:51 AM CDT): Continues clopidogrel 75 mg daily, no problems with bleeding or bruising. No blood in stools. Assessment & Plan (09/22/2021 9:11 AM MUFFLE OPERATOR): Holding clopidogrel since 09/19/21. Labs ordered for upcoming procedure with Dr. Dumont on 09/25/21. Obesity due to excess calories with serious ildefonso rbidity 06/04/2021 Assessment & Plan (07/19/2023 9:19 AM MUFFLE OPERATOR): Patient has maintained weight loss, encouraged continued exercise and diet modifications. Assessment & Plan (07/16/2022 9:07 AM MUFFLE OPERATOR): Congratulated on recent weight loss and increased exercise, will continue to monitor. Assessment & Plan (09/22/2021 9:15 AM MUFFLE OPERATOR): Discussed healthy diet and importance of regular [...] effects. Assessment & Plan (09/22/2021 9:10 AM MUFFLE OPERATOR): Scheduled L4 Vertebral Augmentation with Dr. Dumont [...] regimen. Assessment & Plan (07/19/2023 9:17 AM MUFFLE OPERATOR): Stable. Continue checking feet daily. Current on [...] daily. Assessment & Plan (07/16/2022 8:45 AM MUFFLE OPERATOR): Patient taking metformin 500 mg twice daily [...] 03/23/2021 Assessment & Plan (09/22/2021 9:04 AM MUFFLE OPERATOR): Lab Results Component Value Date HGBA1C 7.4 [...] daily Assessment & Plan (07/19/2023 9:18 AM MUFFLE OPERATOR): LDL at goal, patient is compliant with atorvastatin 40 mg daily denies any medication side effects. Assessment & Plan (07/16/2022 9:12 AM MUFFLE OPERATOR): Patient is taking atorvastatin 40 mg daily, denies any medication side effects.09/21/21 TC 101 TRG 233 HDL 31 LDL 23 Will repeat labs today make any additional changes as needed. Reviewed diet and exercise recommendations. Assessment & Plan (09/22/2021 8:44 AM MUFFLE OPERATOR): 09/21/21 TC 101 TRG 233 HDL 31 LDL 23 Continues atorvastatin 40 mg daily. Chest pain due to myocardial ischemia 05/03/2019 Overview (05/03/2019): Added automatically from request for surgery [id number] Hypertension associated with diabetes Assessment & Plan (01/24/2024 10:42 AM CDT): BP well controlled. Doing well on losartan 100 mg daily. Assessment & Plan (07/19/2023 9:16 AM MUFFLE OPERATOR): Blood pressure is well controlled on current medication regimen, continue losartan 100 mg daily, metoprolol 25 mg daily and amlodipine 10 mg daily. Assessment & Plan (01/14/2023 8:44 AM CDT): Stable; continue losartan 100 mg daily. Assessment & Plan (07/16/2022 8:50 AM MUFFLE OPERATOR): Blood pressure well controlled on current medications. No changes in medications today. Patient has increased activity and is working on weight loss. Following with cardiology. Assessment & Plan (01/14/2022 8:36 AM CDT): BP well controlled. No changes in current regimen. Patient follows with cardiology. Assessment & Plan (09/22/2021 8:45 AM MUFFLE OPERATOR): BP well controlled. No changes in current regimen. Assessment & Plan (06/04/2021 2:03 PM CDT): BP elevated today, likely secondary to back pain. Patient with ability to monitor BP at home. Reviewed BP goals and patient to call clinic if BP elevated. Reviewed red flags. Gout NSTEMI (non-ST elevated myocardial infarction) ( CMS/HCC) Acute coronary syndrome (CMS/HCC) LBBB (left bundle branch block) Resolved Problems Problem Noted Date Diagnosed Date Resolved Date Chest pain 05/03/2019 01/24/2024 Hyperglycemia 05/03/2019 01/24/2024 Neck pain 01/24/2024 Encounters Date Type Department Care Team Description 09/17/2024 Telephone [facility] Cardiology [address] [place] [address] Ciaran Rodriguez MD from Last 3 Months Immunizations Name Administration Dates Next Due Influenza, Quadrivalent, Hig h Dose, Preservative Free, Intrr 06/01/2022,05/11/2021,06/10/2020 Influenza, Split 08/08/2017 Influenza, Trivalent, High D ose, Split, Preservative Free, Intramuscular 05/29/2019 Influenza, Trivalent, IM (MDV) 08/08/2017 Influenza, Unspecified 06/07/2023,2021,05/11/2021,05/13 Pfizer SARS-CoV-2 Monovalent Vaccination (12+ Yrs) PURPLE 05/11/2021,10/26/2020,10/05/2020 Pneumococcal Conjugate PCV 13 12/21/2019 Pneumococcal Conjugate, Unspecified 05/08/2018(D eferred: Patient Refused) Pneumococcal Polysaccharide PPV23 03/17/2021 Surgical History Surgery Date Site/Laterality Comments PROSTATECTOMY CATARACT EXTRACTION CERVICAL FUSION HERNIA REPAIR 08/08/2007 - 08/07/2008 PROSTATECTOMY 08/08/2011 - 08/07/2012 CATARACT EXTRACTION, BILATERAL 08/08/2018 - 08/07/2019 KYPHOPLASTY LUMBAR 09/25/2021 N/A Medical History Medical History Date Comments Adenocarcinoma of prostate (HCC) 2010 Hypertension Gout Chronic neck pain Heart attack (HCC) Hyperlipidemia Covid Family History Medical History Relation Name Comments Alzheimer's disease Father Heart disease Mother Relation Name Status Comments Father Mother Social History Tobacco Use Types Packs/Day Years [...] on file Legal Sex Male 9:45 AM MUFFLE OPERATOR Gender Identity Not on file Sexual Orientation Not on file Obstetrics History Last Filed Vital Signs Vital Sign Reading [...] 02/15/2024 8:21 AM CDT Plan of Treatment Health Maintenance Due Date Last Done Comments Hepatitis C Screening 1945 DTaP/Tdap/Td Vaccine (1 - Tdap) 1957 Hepatitis B Screening 1964 Zoster Vaccine (1 of 2) 1996 Covid-19 Vaccine (4 - 2023-2 5 season) 2024 05/11/2021, 10/26/2020, 10/05/2020 Influenza Vaccine (#1) 2024 , 06/01/2022, 04/27/2022, Additional history exists Hemoglobin A1C 07/20/2024 01/19/2024, 12/0 01/2023, 01/14/2023, Additional history exists Albumin Creatinine Ratio, Urine 01/18/2025 01/19/2024, 01/14/2023, 09/21/2021, Additional history exists Lipid Panel 01/18/2025 01/19/2024, 01/2023, 01/14/2023, Additional history exists eGFR 01/18/2025 01/19/2024, 01/2023, 01/14/2023, Additional history exists Depression Screening 01/23/2025 01/24/2024, 07/19/2023, 01/14/2023, Additional history exists Fall Risk Assessment 01/23/2025 01/24/2024, 07/19/2023, 01/14/2023, Additional history exists Foot Exam 01/23/2025 01/24/2024, 04/2023, 09/22/2021, Additional history exists Well Visit 65+ 01/23/2025 01/24/2024, 03/17/2021 Dilated Eye Exam 03/07/2025 03/07/2024, 08/2022, 04/15/2020 Pneumococcal vaccine 65+ Completed 03/17/2021, 12/06 Colon Cancer Screening-CT Colonography Discontinued 04/10/2021, 10/15/2015 Colon Cancer Screening-Colonoscopy Discontinued 04/10/2021, 10/15/2015 Colon Cancer Screening-DNA Stool Discontinued 04/10/20 21, 10/15/2015 Colon Cancer Screening-FIT Discontinued 04/10/2021, Colon Cancer Screening-FOBT Discontinued 04/10/2021, 0 10/15/2015 Colon Cancer Screening-Sigmoidoscopy Discontinued 04/10/2021, 10/15/2015 Colorectal Cancer Screening Discontinued Abdominal Aortic Aneurysm (A AA) Screen Completed 08/23/2022 Medical Devices Implanted Type Area Production Designer Device Identifier Shelf Expiration Date Model / Serial / Lot Daig Anisha [id number] Device Closure Angio-Seal Vip Bondek-Plus Polyglyd L70 Cm Od6 Fr Odsec.035 In Vascular - [id number] Implanted:Qty: 1 on 05/04/2019 by Ciaran Rodriguez MD at [facility] Collagen Daig Anisha/[employer] [id number] / / Daig Anisha/[employer] [id number] Angio-Seal Vip Bondek-Plus 8fr .038in 70cm Hemostatic Latex Free - [id number] Implanted:Qty: 1 on 05/04/2019 by Ciaran Rodriguez MD at [facility] Collagen Daig Anisha/[employer] [id number] / / [employer] Anisha [id number] Synergy 3.5mm 16mm 144cm Radiopaque 1 Access Port Inflation Lumen - [id number] Implanted:Qty: 1 on 05/04/2019 by Ciaran Rodriguez MD at [facility] Stent [employer] Anisha 11/29/2020 [id number] / / [employer] Anisha [id number] Synergy 3.5mm 20mm 144cm Radiopaque 1 Access Port Inflation Lumen - [id number] Implanted:Qty: 1 on 05/04/2019 by Ciaran Rodriguez MD at [facility] Stent [employer] Anisha [id number] / / [employer] [id number] Vertaplex Hv Autoplex Without Needle Delivery System Kit Bone - [id number] Implanted:Qty: 1 on 09/25/2021 at [facility] 05/07/2022 [id number] / / [id number] Procedures Procedure Name Priority Date/Time Associated Diagnosis [...] associated with type 2 diabetes mellitus (HCC) ABDOMINAL AORTIC ANEURYSM SCREENING Schedule Routine, Read Routine (OP Routine) 08/23/2022 11:41 AM MUFFLE OPERATOR Encounter for abdominal aortic aneurysm (AAA) screening COLONOSCOPY Routine 04/10/2021 from Last 3 Months or Most Recently Relevant to Health Maintenance Results * Diabetic Eye Exam (03/07/2024 9:02 AM CDT) Historical Provider HEALTH MAINTENANCE Final Result * [...] was last reviewed 2021. Testing performed by: [facility], [address] [place] [address], [place]., [address] Blood 01/19/2024 8:07 AM CDT 01/19/2024 12:41 PM CDT Bernarda Storm NP LAB BLOOD ORDERABLES Final Result Performing Organization Address City/[facility]/ZIP Co de Phone Number [facility] ([place]) [address] [place] [address] * (ABNORMAL) Albumin Creatinine Ratio, Urine (01/19/2024 8:07 AM CDT) Albumin Ur 140.5 mg/L Comment: Interpretive Data No reference range established. Current interpretive data was last revised 2018. Testing performed by: [address] [address] Creatinine Ur 119.1 mg/dL [facility] ([place]) Comment: Interpretive Data No reference range established. Current interpretive data was last revised 2018. Testing performed by: [address] [address] Albumin Creatinine Ratio, Ur 118(H) 1 - 29 mg/g [facility] ([place]) Comment:Testing performed by : [address] [address] Urine 01/19/2024 8:07 AM CDT 01/19/2024 12:11 PM CDT Bernarda Storm ACADEMIC INTERVENTIONIST LAB URINE ORDERABLES Final Result Performing Organization Address [facility] Co de Phone Number [facility] ([place]) 1 [facility] [place] [employer] [place] [address] * (ABNORMAL) Hemoglobin A1c (01/19/2024 8:07 AM CDT) Hgb A1C 6.0(H) 4.0 - 5.6 % Comment:Testing performed by : [address] [address] Estimated Average Glucose 126 mg/dL [facility] ([place]) Comment: The ADA recommends reporting an estimated Average Glucose (eAG) with all Hemoglobin A1c results using the equation derived from a study of 507 normal and diabetic adults. Minority populations were underrepresented and children were not included. (Diabetes Care 31:5446-7312, 2008). The eAG is not equivalent to a fasting glucose. Testing performed by: [facility], [address] [place] [address]., [address] Blood 01/19/2024 8:07 AM CDT 01/19/2024 12:11 PM CDT Bernarda Storm ACADEMIC INTERVENTIONIST LAB BLOOD ORDERABLES Final Result [facility] ([place]) 1 [facility] Department of [place] [address] * (ABNORMAL) Lipid panel (01/19/2024 8:07 AM [...] last revised on 2018. Testing performed by: [facility], [address] [place] [address]., [address] Triglycerides 176(H) <=149 mg/dL [facility] ([place]) Comment: Interpretive Data [...] last revised on 2018. Testing performed by: [address] [place] [address] HDL 39(L) >=40 mg/dL [facility] ([place]) [...] last revised on 2018. Testing performed by: [facility], [address] [place] [address]., [address] LDL, calculated 39 <=129 mg/dL [facility] ([place]) Comment: Interpretive Data Ages < [...] last revised on 2018. Testing performed by: [facility], [address] [place] [address]., [address] Non-HDL Cholesterol 74 mg/dL [facility] ([place]) Comment: Interpretive Data Ages < [...] last revised on 2018. Testing performed by: [facility], [address] [place] [address]., [address] Chol/HDL ratio 3 [facility] ([place]) Comment:Testing performed by : [facility], [address] [place] [address], [place]., [address] Blood 01/19/2024 8:07 AM CDT 01/19/2024 12:11 PM CDT Bernarda Storm ACADEMIC INTERVENTIONIST LAB BLOOD ORDERABLES Final Result [facility] ([place]) 1 [facility] Department [place] [address] * US Abdominal Aortic Aneurysm Screening (08/23/2022 11:41 AM MUFFLE OPERATOR) Anatomical Region Laterality Modality Abdomen Ultrasound 08/23/2022 12:5 3 PM MUFFLE OPERATOR Narrative 08/23/2022 12:54 PM MUFFLE OPERATOR EXAM DESCRIPTION: US ABDOMINAL AORTIC ANEURYSM SCREENING [...] Pool Lucia M.D. CH: YASMINE Report ID: [id number] Reading Location: [id number] Procedure Note Pool Lucia Jr., MD - [...] Pool Lucia M.D. CH: YASMINE Report ID: [id number] Reading Location: [id number] us Bernarda Storm NP IMG US PROCEDURES Final Res ult * Colonoscopy (04/10/2021) Anatomical Region Laterality Modality Other us Historical Provider ENDOSCOPY PROCEDURES Judith l Result from Last 3 Months or Most Recently Relevant to Health Maintenance Insurance MEDICARE [employer] MEDICARE [employer] MEDICARE [employer] Advance Directives For more information, please contact: [phone] Documents on File Type Date Recorded Patient Inspector Toys Expl anation ADVANCE DIRECTIVE 09/18/2019 10:41 AM TRISTIN SANTA WILL ADVANCE DIRECTIVE 09/03/2019 Living Matthew l * Full Code (Latest Code Status on File) Date Activated Date Inactivated Comments 09/25/2021 1:56 PM 09/25/2021 7:17 PM * Full Code Date Activated Date Inactivated Comments 05/03/2019 6:48 AM 05/06/2019 7:18 PM Care Teams It Security Administrator Relationship Specialty Start Date End Date Saturnino Zepeda MD [address] [place] [address] PCP - General Family Medicine 05/03/19 Rey Solis, OFFICE RN [address] [facility] [address] [place] [address] [facility] Outpatient Endodontics Dentist 05/07/19 Krish Delacruz, OFFICE RN [address] [facility] [address] [place] [address] CH[facility] Outpatient Endodontics Dentist 05/07/19 Annemarie Sicnlair, [place] [address] [facility] [address] [place] [address] Nurse Practitioner Internal Medicine 05/07/19
--- OUTSIDE RECORDS SUMMARY | 2024-09-21 00:21 | XMS_ITS | Encounter Summary ---
Author Organization [facility] Address [address] [place] [address] Care Team Providers Care Last Trimmer Name Role Phone Saturnino Zepeda MD Primary Care Provider [phone] Rey Solis SHIP'S ENGINEER Unavailable [phone] Krish Delacruz SHIP'S ENGINEER Unavailable [phone] Annemarie Sinclair DNP Unavailable [phone] Encounter Details Date Type Department Care Team (Late st Contact Info) Description 09/17/2024 Telephone [facility] Cardiology [address] [place] [address] Ciaran Rodriguez MD [address] [place] [id number] Social History Tobacco Use Types Packs/Day Years Used Date Smoking Tobacco: Former Smokeless Tobacco: Never Alcohol Use Standard Drinks/Week Comments Yes 0 [...] on file Legal Sex Male 9:45 AM NEURORADIOLOGIST Gender Identity Not on file Sexual Orientation Not on file documented as of this encounter Miscellaneous Notes * Telephone Encounter - Ino Boykin RN - 09/17/2024 12:01 PM NEURORADIOLOGIST Spoke with Vivian, advised that clearance would be sent to [facility] to be addressed tomorrow. ORADIOLOGIST * Telephone Encounter - Lissette Cruz - 09/17/2024 11:19 AM CST Vivian from [facility] states she faxed a cardiac clearance request on 09/05 and 09/13 to the RN fax. Pt is scheduled for this Tuesday and yesterday was the last day for him to take his blood thinner. Vivian requesting call back with an update because pt would need to hold blood thinner starting today. Contact: ORADIOLOGIST documented in this encounter Plan of Treatment Not on file documented as of this encounter Visit Diagnoses Not on filedocumented in this encounter Care Teams Last Trimmer Relationship Specialty Start Date End Date Saturnino Zepeda MD [address] [place] [address] PCP - General Family Medicine 05/03/19 Rey Solis, SHIP'S ENGINEER [address] [place] [address] CHAP Outpatient Strike Warfare/Missile Systems Officer 05/07/19 Krish Delacruz, SHIP'S ENGINEER [address] [address] CHAP Outpatient Strike Warfare/Missile Systems Officer 05/07/19 Annemarie Sinclair DNP [address] [place] [address] Nurse Practitioner Internal Medicine 05/07/19 documented as of this encounter
[2024-09-21 06:35] VITALS: BP 141/72; PULSE 74; RESP 18; TEMP 35.6; O2SAT 98; BMI 32.5
[2024-09-21] MEDS: LACTATED RINGERS 1,000 ML 150 ML IV CONT (07:05)
[2024-09-21 07:07] LABS: Glucose Point of Care 126 mg/dl (65-105)
--- NOTE | 2024-09-21 07:07 | P.PNAN_ITS ---
Anes - Initial Pre Proc Eval Procedure: Operation Date: 09/21/24 08:00 Proposed Procedures p Screening Colonoscopy - Bryce Tang MD Date/Time: 09/21/24 07:07 Surgeon: Bryce Tang MD Pre Op Diagnosis: personal hx colon polyps Patient Data Age: 78 Gender: M Height: 1.75 m Weight: 100 kg Last Vital Signs Temp 35.6 C L 09/21/24 06:35 Pulse 74 09/21/24 06:35 Resp 18 09/21/24 06:35 BP 141/72 H 09/21/24 06:35 Pulse Ox 98 09/21/24 06:35 O2 Del Method Room Air 09/21/24 06:35 Allergies Allergy/AdvReac Type Severity Reaction Status Date / Time MEPERIDINE HCL Allergy Severe ANAPHYLACTIC Uncoded 09/21/24 06:46 REACTION Home Medications ?Medication ?Instructions ?Recorded ?Confirmed ?Type allopurinol 300 mg tablet 300 mg PO DAILY 04/01/21 09/21/24 History amlodipine 10 mg tablet 10 mg PO DAILY 04/01/21 09/21/24 History atorvastatin 40 mg tablet 40 mg PO DAILY 04/01/21 09/21/24 History clopidogrel 75 mg tablet 75 mg PO DAILY 04/01/21 09/21/24 History glipizide 5 mg tablet 5 mg PO DAILY 04/01/21 09/21/24 History losartan 100 mg tablet 100 mg PO DAILY 04/01/21 09/21/24 History metformin 500 mg tablet,extended 500 mg PO BIDWMEAL 04/01/21 09/21/24 History release 24 hr Laboratory Tests 09/21/24 06:55 POC Capillary Glucose 126 H mg/dl (65-105) Patient hx anesthesia problems: none Family hx anesthesia problems: none Results Review: All pre-operative results and documents have been reviewed as part of the pre- operative evaluation. [facility] Past Medical History Medical History Recurrent incisional hernia History of prostate cancer Type 2 diabetes mellitus Hypertension Hyperlipidemia Surgical History Surgical History (Updated 09/21/24 @ 07:08 by Van Romeo MD) S/P cervical spinal fusion H/O heart artery stent Family History Family History Other Diabetes mellitus Family history of cardiovascular disease Hypertension Social History Social History Smoking packs per day: 1 Smoking cigarettes per day: 20.0 Years smoked: 32 Smoking pack-years: 32.00 Smoking status: Former smoker Smoking end date: 08/08/97 Alcohol intake: current Drinks per week: 5 Alcohol use details: Bottle of wine/week Substance use: never Substance use type: does not use Living arrangements: with family Spiritual care concerns: No Anes - Eval Final PreProcedure Day of Procedure 09/21/24 07:07 Patient weight: obese Heart: regular rate and rhythm Lungs: clear to auscultation Airway: Mallampati scale class II Neurological: alert and oriented Last oral intake: >/= 8 hours ASA classification: III Emergent: no Anesthetic plan: proceed Anesthesia type and monitoring: general GIVS and standard monitoring Results Review: All pre-operative results and documents have been reviewed as part of the pre- operative evaluation. Informed Consent: The patient's anesthetic plan and its attendant risks and benefits were discussed with the patient/family/POA. Questions were solicited and answers provided to the satisfaction of the patient/family/POA.
--- NOTE | 2024-09-21 07:43 | PM.HPGS ---
History of Present Illness History of Present Illness Consent: Risks, benefits, and alternatives have been discussed and questions answered. Patient agrees to proceed with procedure. Chief complaint: personal hx colon polyps Narrative: Rodney Mathur Jr. is a 78 year old male with colon polyps in 2020 Review of Systems Review of Systems: All systems reviewed & are unremarkable except as noted in HPI and below PMFSH Past Medical History Medical History (Updated 09/21/24 @ 07:43 by Bryce Tang MD) Adenomatous colon polyp Recurrent incisional hernia History of prostate cancer Type 2 diabetes mellitus Hypertension Hyperlipidemia Surgical History Surgical History (Updated 09/21/24 @ 07:08 by Van Romeo MD) S/P cervical spinal fusion H/O heart artery stent Family History Family History Other Diabetes mellitus Family history of cardiovascular disease Hypertension Social History Social History Smoking packs per day: 1 Smoking cigarettes per day: 20.0 Years smoked: 32 Smoking pack-years: 32.00 Smoking status: Former smoker Smoking end date: 08/08/97 Alcohol intake: current Drinks per week: 5 Alcohol use details: Bottle of wine/week Substance use: never Substance use type: does not use Living arrangements: with family Spiritual care concerns: No Meds Home Medications and Allergies Home Medications ?Medication ?Instructions ?Recorded ?Confirmed ?Type allopurinol 300 mg tablet 300 mg PO DAILY 04/01/21 09/21/24 History amlodipine 10 mg tablet 10 mg PO DAILY 04/01/21 09/21/24 History atorvastatin 40 mg tablet 40 mg PO DAILY 04/01/21 09/21/24 History clopidogrel 75 mg tablet 75 mg PO DAILY 04/01/21 09/21/24 History glipizide 5 mg tablet 5 mg PO DAILY 04/01/21 09/21/24 History losartan 100 mg tablet 100 mg PO DAILY 04/01/21 09/21/24 History metformin 500 mg tablet,extended 500 mg PO BIDWMEAL 04/01/21 09/21/24 History release 24 hr Allergies Allergy/AdvReac Type Severity Reaction Status Date / Time MEPERIDINE HCL Allergy Severe ANAPHYLACTIC Uncoded 09/21/24 06:46 REACTION Vital Signs Vital Signs - 24 hr 09/21/24 06:35 Temperature 96.1 F L Pulse Rate 74 Respiratory Rate 18 Blood Pressure 141/72 H Pulse Oximetry 98 Oxygen Delivery Room Air Exam Const: General: comfortable and no acute distress HENMT: Face/Nose/Sinus: Normal nares present Eyes: General: appearance normal, both eyes and all related structures Neck: Neck: no JVD Resp: Auscultation: clear to auscultation bilaterally Cardio: Rate: regular rate Rhythm: regular rhythm GI: Inspection: non-distended GI Palp: Yes Soft to palpation Skin: General skin exam: normal color Neuro: Speech: normal speech Extrem: General: normal to inspection Psych: Mental Status: mental status grossly normal Assessment and Plan Assessment and plan (1) Adenomatous colon polyp: Code(s): D12.6 - Benign neoplasm of colon, unspecified Status: Acute Assessment and Plan: colonoscopy
[2024-09-21 08:02] VITALS: BP 114/69; PULSE 73; RESP 26; O2SAT 99
[2024-09-21 08:12] VITALS: BP 129/72; PULSE 77; RESP 28; O2SAT 99
[2024-09-21 08:22] VITALS: BP 122/74; PULSE 68; RESP 20; O2SAT 100
== END 2024-09-21 08:35 | disposition home or self-care (01) ==
PROVIDERS: PCP Family Medicine; Visit Provider Internal Medicine Gastroenterology
PROC: 0DJD8ZZ Inspection of Lower Intestinal Tract, Via Natural or Artificial Opening Endoscopic (ICD-10-PCS; CPT 45378; principal; 2024-09-21 08:00)
DX: Z12.11 Encounter for screening for malignant neoplasm of colon (principal); D12.4 Benign neoplasm of descending colon; D12.3 Benign neoplasm of transverse colon; D12.8 Benign neoplasm of rectum; K57.30 Diverticulosis of large intestine without perforation or abscess without bleeding; K64.8 Other hemorrhoids; Z87.891 Personal history of nicotine dependence; Z79.84 Long term (current) use of oral hypoglycemic drugs; E66.9 Obesity, unspecified; Z68.32 Body mass index [BMI] 32.0-32.9, adult
CPT/HCPCS: 45385; 82948; 88305; J2704; J7120